=== PATIENT | male | born 1955 | race Caucasian/White ===

== ENCOUNTER 2022-11-24 16:34 | Emergency (ER) | payer MEDICARE ==
[~2022-11-24] VITALS: Ht 185.4 cm; Wt 160.0 kg
[2022-11-24 16:41] VITALS: BP 167/89; PULSE 103; RESP 18; TEMP 97.8; O2SAT 98
[2022-11-24] MEDS ORDERED: silver nitrate applicator stick TP ONE (18:00)
== END 2022-11-24 19:02 | disposition home or self-care (01) ==
LOC: ER 16:35
DX: R04.0 Epistaxis (principal)
CPT/HCPCS: 30905; 99284

== ENCOUNTER 2023-05-01 10:44 | Inpatient (IN) | payer MEDICARE ==
[~2023-05-01] VITALS: Ht 182.9 cm; Wt 151.7 kg
[2023-05-01] MEDS ORDERED: iohexol 350MG/ML 100ml bottle IV ONE (11:07)
[2023-05-01 11:20] LABS: BASOPHILS # (AUTO) 0.1 X10'3 (0-0.2); BASOPHILS % (AUTO) 1.1 % (0-1); EOSINOPHILS # (AUTO) 0.3 X10'3 (0-0.9); EOSINOPHILS % (AUTO) 2.9 % (0-6); HEMATOCRIT 43.5 % (42.0-52.0); HEMOGLOBIN 14.7 g/dl (14.0-17.9); LYMPHOCYTES # (AUTO) 2.5 X10'3 (1.1-4.8); LYMPHOCYTES % (AUTO) 26.2 % (21-51); MEAN CORPUSCULAR HEMOGLOBIN 29.1 PG (27.0-31.0); MEAN CORPUSCULAR HGB CONC 33.7 g/dL (33.0-36.5); MEAN CORPUSCULAR VOLUME 86.4 FL (78-98); MEAN PLATELET VOLUME 8.8 FL (7.4-10.4); MONOCYTES # (AUTO) 0.8 X10'3 (0-0.9); MONOCYTES % (AUTO) 8.7 % (2-12); NEUTROPHILS # (AUTO) 5.7 X10'3 (1.8-7.7); NEUTROPHILS % (AUTO) 61.1 % (42-75); PLATELET COUNT 278 X10'3 (140-440); RED BLOOD COUNT 5.03 X10'6 (4.70-6.10); RED CELL DISTRIBUTION WIDTH 15.2 % (11.5-14.5); WHITE BLOOD COUNT 9.4 X10'3 (4.5-11.0)
[2023-05-01 11:30] LABS: ALBUMIN 3.4 G/DL (3.4-5.0); ANION GAP 9 (8-16); BLOOD UREA NITROGEN 16 MG/DL (7-18); BUN/CREATININE RATIO 16.2 (10.0-20.0); CALCIUM 9.3 MG/DL (8.5-10.1); CHLORIDE 104 MMOL/L (99-107); CREATININE 0.99 MG/DL (0.60-1.10); GLUCOSE 163 MG/DL (70-104); POTASSIUM 4.4 MMOL/L (3.5-5.1); SODIUM 139 MMOL/L (135-145); TOTAL CARBON DIOXIDE 25.8 MMOL/L (24-32); eCRCL 78 ML/MIN; eGFR 75 ML/MIN
[2023-05-01 11:35] LABS: APTT 27 SECONDS (22-32); INR 1.1 INR; PROTHROMBIN TIME 11.4 SECONDS (9.0-12.0)
[2023-05-01] MEDS: aspirin 325mg tablet PO ONE (12:41)
[2023-05-01] MEDS ORDERED: potassium Cl 20 mEq SR tablet PO PRN ×2 (14:30)
[2023-05-01] MEDS ORDERED: magnesium Cl slow-release 64mg tablet PO PRN (14:30)
[2023-05-01] MEDS ORDERED: magnesium hydroxide 30ml (MOM) UD suspension PO PRN (14:30)
[2023-05-01] MEDS ORDERED: ondansetron/PF 4mg/2ml inj IV PRN (14:30)
[2023-05-01] MEDS ORDERED: mag hydrox/Alum hydrox/simeth 30ml oral suspension PO PRN (14:30)
[2023-05-01 15:45] LABS: CHOL/HDL RATIO 3.9 (0.00-4.99); CHOLESTEROL 145 MG/DL (0-200); HDL CHOLESTEROL 37 MG/DL (35-60); LDL CHOLESTEROL 84 MG/DL (50-100); TRIGLYCERIDES 133 MG/DL (20-135)
[2023-05-01 17:16] LABS: BILIRUBIN,URINE NEGATIVE (Neg); CLARITY,URINE CLEAR (Clear); COLOR,URINE YELLOW (Yellow); GLUCOSE, URINE NEGATIVE (Neg); KETONES,URINE NEGATIVE (Neg); LEUKOCYTE ESTERASE ,URINE NEGATIVE (Neg); NITRITES, URINE NEGATIVE (Neg); OCCULT BLOOD,URINE NEGATIVE (Neg); PROTEIN,URINE NEGATIVE (Neg); UROBILINOGEN,URINE 0.2 E.U/dL (0.2-1.0)
[2023-05-01 17:22] LABS: UA COLLECTION TYPE NON-SPECIFIED
[2023-05-01] MEDS ORDERED: DEXTROSE 15 GM of carb/4 tabs (each vial/BOTTLE has 4 tablets) PO PRN ×2 (19:40)
[2023-05-01] MEDS ORDERED: insulin Lispro (HumaLOG) vial - multi-dose SQ SCH (19:40)
[2023-05-01] MEDS ORDERED: glucagon, human recombinant 1mg kit SUBCUT PRN (19:40)
[2023-05-01] MEDS ORDERED: dextrose 50%-water 50ml dispensing syringe IV PRN ×2 (19:40)
[2023-05-01] MEDS: MESSAGE TO PHARMACY PO ONE (19:40)
[2023-05-01] MEDS ORDERED: METF-900 PO (19:42)
[2023-05-01 19:48] VITALS: BP 165/82; PULSE 65; RESP 18; TEMP 96.8; O2SAT 98
[2023-05-01 20:00] VITALS: RESP 17; O2SAT 98
[2023-05-01] MEDS: docusate sod 100mg capsule PO SCH (20:00)
[2023-05-01] MEDS: insulin glargine (Lantus) pen - multi-dose SQ SCH (21:00)
[2023-05-01 22:00] VITALS: BP 144/70; PULSE 62; RESP 24; TEMP 96.9; O2SAT 97
[2023-05-01] MEDS: atorvastatin 20mg tablet PO SCH (22:35)
[2023-05-01] MEDS: acetaminophen 325mg tablet PO PRN (23:49)
[2023-05-02 02:00] VITALS: BP 137/74; PULSE 62; RESP 16; TEMP 96.7; O2SAT 96
[2023-05-02 06:00] VITALS: BP 133/77; PULSE 61; RESP 18; TEMP 96.6; O2SAT 97
[2023-05-02 06:40] LABS: BASOPHILS # (AUTO) 0.1 X10'3 (0-0.2); BASOPHILS % (AUTO) 1.1 % (0-1); EOSINOPHILS # (AUTO) 0.4 X10'3 (0-0.9); EOSINOPHILS % (AUTO) 4.7 % (0-6); HEMATOCRIT 43.8 % (42.0-52.0); HEMOGLOBIN 14.4 g/dl (14.0-17.9); LYMPHOCYTES # (AUTO) 2.5 X10'3 (1.1-4.8); LYMPHOCYTES % (AUTO) 27.1 % (21-51); MEAN CORPUSCULAR HEMOGLOBIN 28.8 PG (27.0-31.0); MEAN CORPUSCULAR HGB CONC 32.9 g/dL (33.0-36.5); MEAN CORPUSCULAR VOLUME 87.4 FL (78-98); MEAN PLATELET VOLUME 9.4 FL (7.4-10.4); MONOCYTES # (AUTO) 0.9 X10'3 (0-0.9); MONOCYTES % (AUTO) 9.4 % (2-12); NEUTROPHILS # (AUTO) 5.4 X10'3 (1.8-7.7); NEUTROPHILS % (AUTO) 57.7 % (42-75); PLATELET COUNT 257 X10'3 (140-440); RED BLOOD COUNT 5.01 X10'6 (4.70-6.10); WHITE BLOOD COUNT 9.4 X10'3 (4.5-11.0)
[2023-05-02 06:43] LABS: APTT 29 SECONDS (22-32); INR 1.1 INR; PROTHROMBIN TIME 11.3 SECONDS (9.0-12.0)
[2023-05-02 07:05] LABS: ALANINE AMINOTRANSFERASE 38 U/L (12-78); ALBUMIN 3.2 G/DL (3.4-5.0); ALBUMIN/GLOBULIN RATIO 0.9 (1.1-1.5); ALKALINE PHOSPHATASE 61 IU/L (46-116); ANION GAP 7 (8-16); ASPARTATE AMINO TRANSFERASE 20 U/L (10-37); BILIRUBIN,TOTAL 0.8 MG/DL (0.1-1.0); BLOOD UREA NITROGEN 15 MG/DL (7-18); BUN/CREATININE RATIO 16.9 (10.0-20.0); CHLORIDE 106 MMOL/L (99-107); CREATININE 0.89 MG/DL (0.60-1.10); FREE T4 (FREE THYROXINE) 0.91 NG/DL (0.73-1.40); GLUCOSE 140 MG/DL (70-104); MAGNESIUM 2.1 MG/DL (1.5-2.4); PHOSPHORUS 3.6 MG/DL (2.3-4.5); POTASSIUM 4.4 MMOL/L (3.5-5.1); SODIUM 140 MMOL/L (135-145); THYROID STIMULATING HORMONE 1.47 ulU/ml (0.34-4.50); TOTAL CARBON DIOXIDE 27.1 MMOL/L (24-32); TOTAL PROTEIN 6.9 G/DL (6.4-8.2); eCRCL 87 ML/MIN; eGFR 85 ML/MIN
[2023-05-02 07:35] LABS: HEMOGLOBIN A1C 7.5 % (4.5-6.2)
[2023-05-02] MEDS: aspirin 81mg, enteric-coated 1 TAB TABLET.DR PO SCH (07:41)
[2023-05-02 08:00] VITALS: RESP 14
[2023-05-02 10:00] VITALS: BP 155/80; PULSE 76; RESP 18; TEMP 97.9; O2SAT 96
[2023-05-02] MEDS ORDERED: LOSA50TA64 PO (18:21)
[2023-05-02] MEDS ORDERED: ASPI-1071 PO (18:21)
[2023-05-02] MEDS ORDERED: ATOR20TA66 PO (18:21)
== END 2023-05-02 19:45 | disposition home or self-care (01) | DRG 123 ==
LOC: ER 10:45 → ED HOLD 14:38 → EDBEDREQ 17:09 → ORTHO 4S 18:55
PROVIDERS: ADMIT Family Medicine; ATTEND Family Medicine
PROC: B3251ZZ Computerized Tomography (CT Scan) of Bilateral Common Carotid Arteries using Low Osmolar Contrast (ICD-10-PCS; principal; 2023-05-01)
PROC: B32G1ZZ Computerized Tomography (CT Scan) of Bilateral Vertebral Arteries using Low Osmolar Contrast (ICD-10-PCS; 2023-05-01)
PROC: B32R1ZZ Computerized Tomography (CT Scan) of Intracranial Arteries using Low Osmolar Contrast (ICD-10-PCS; 2023-05-01)
PROC: B3281ZZ Computerized Tomography (CT Scan) of Bilateral Internal Carotid Arteries using Low Osmolar Contrast (ICD-10-PCS; 2023-05-01)
DX: H49.21 Sixth [abducent] nerve palsy, right eye (principal); Z68.42 Body mass index [BMI] 45.0-49.9, adult; E66.01 Morbid (severe) obesity due to excess calories; E11.9 Type 2 diabetes mellitus without complications
CPT/HCPCS: 36415; 70450; 70496; 70498; 71045; 80048; 80053; 80061; 81003; 82948; 83036; 83735; 84100; 84439; 84443; 85025; 85610; 85730; 86885; 86900; 86901; 87081; 92508; 92616; 93005; 97116; 97161; 97530; 99285; G0378; J1815; J3490; Q9967